=== PATIENT | female | born 1990 | race Caucasian/White ===

== ENCOUNTER 2016-09-04 21:20 | Emergency (ER) | payer SELFPAY ==
[~2016-09-04] VITALS: Ht 172.7 cm; Wt 72.6 kg
[2016-09-04 21:34] VITALS: BP 144/102
--- NOTE | 2016-09-04 21:50 | PHYS DOC ---
Past Medical History Past Medical History: Hepatitis, Other Additional Past Medical Histor: HEPATITIS C, HERPES Past Surgical History: No Surgical History Alcohol Use: None Drug Use: None Adult General Chief Complaint Chief Complaint: DENTAL PROBLEM HPI HPI Patient is a 26 year old female with history of hepatitis C who presents today stating her gums are very painful and they feel like they can follow-up. Patient denies any fever. She states she has a dentist and follows up at [facility]. She is requesting something for pain very urgently in the ED. Review of Systems Review of Systems Constitutional: Denies fever or chills [] Eyes: Denies change in visual acuity, redness, or eye pain [] HENT: gum pain redness and swelling Respiratory: Denies cough or shortness of breath [] Cardiovascular: No additional information not addressed in HPI [] GI: Denies abdominal pain, nausea, vomiting, bloody stools or diarrhea [] : Denies dysuria or hematuria [] Musculoskeletal: Denies back pain or joint pain [] Integument: Denies rash or skin lesions [] Neurologic: Denies headache, focal weakness or sensory changes [] Endocrine: Denies polyuria or polydipsia [] Current Medications Current Medications Current Medications Medications (Trade) Dose Ordered Sig/[place] Start Time Stop Time Status Last Admin Dose Admin Lidocaine HCl (Viscous Lidocaine) 15 ml 1X ONCE 09/04/16 22:00 09/04/16 22:01 Allergies Allergies Allergies Coded Allergies Type Severity Reaction Last Updated Verified acetaminophen Allergy Unknown 03/27/15 Yes latex Allergy Unknown 06/14/15 No Physical Exam Physical Exam Constitutional: Well developed, well nourished, no acute distress, non-toxic appearance. [] HENT: Normocephalic, atraumatic, bilateral external ears normal, oropharynx moist, no oral exudates, nose normal. [] Lower gums especially the front teeth appear to have redness and swelling diffusely consistent with gingivitis. Poor dental hygiene with dental carriers Eyes: PERRLA, EOMI, conjunctiva normal, no discharge. [] Neck: Normal range of motion, no tenderness, supple, no stridor. [] Cardiovascular:Heart rate regular rhythm, no murmur [] Lungs & Thorax: Bilateral breath sounds clear to auscultation [] Abdomen: Bowel sounds normal, soft, no tenderness, no masses, no pulsatile masses. [] Skin: Warm, dry, no erythema, no rash. [] Back: No tenderness, no CVA tenderness. [] Extremities: No tenderness, no cyanosis, no clubbing, ROM intact, no edema. [] Neurologic: Alert and oriented X 3, normal motor function, normal sensory function, no focal deficits noted. [] Psychologic: Affect normal, judgement normal, mood normal. [] Current Patient Data Vital Signs Vital Signs Date Time Temp Pulse Resp B/P Pulse Ox O2 Delivery O2 Flow Rate FiO2 09/04/16 21:34 98.2 98 16 99 Room Air 98.2 EKG EKG [] Radiology/Procedures Radiology/Procedures [] Course & Med Decision Making Course & Med Decision Making Pertinent Labs and Imaging studies reviewed. (See chart for details) Patient has gingivitis and dental carriers. She was discharged with amoxicillin , chlorhexidine and lidocaine viscous. She stated she has a dentist, i recommended she follows up as soon as as can. Dragon Disclaimer Dragon Disclaimer This electronic medical record was generated, in whole or in part, using a voice recognition dictation system. Departure Departure Impression: Primary Impression: Gingivitis, acute Additional Impression: Dental caries Disposition: HOME, SELF-CARE Condition: STABLE Referrals: NO PCP (PCP) Follow-up with your dentist in one week Patient Instructions: Gingivitis, [id number] Additional Instructions: You were seen for gingivitis which is inflammation of the GUMS. We put you on several medicines. Use them as directed. Follow-up with your own dentist in the next 7 days, Scripts Amoxicillin 875 Mg Tablet1 Tab PO BID #20 TAB Prov:TIANA MCPHERSON APRN 09/04/16 Lidocaine Hcl (Lidocaine Hcl Viscous)20 Mg/1 Ml [id number] Ml PO QID #100 ML Swish and spit for gum pain Prov:TIANA MCPHERSON APRN 09/04/16 Chlorhexidine Gluconate (Peridex)15 Ml [id number] Ml PO BID #946 ML Prov:TIANA MCPHERSON APRN 09/04/16 Problem Qualifiers TIANA MCPHERSON APRN Sep 04, 2016 21:50
[2016-09-04] MEDS ORDERED: LIDO20SO PO (21:55)
[2016-09-04] MEDS ORDERED: CHLO15MO2 PO (21:55)
[2016-09-04] MEDS ORDERED: AMOX875T PO (21:58)
[2016-09-04] MEDS ORDERED: LIDOCAINE 2% VISCOUS 15 ML SOLUTION. SWSW ONE (22:00)
[2016-09-04] MEDS ORDERED: AMOX400S2 PO (22:14)
[2016-09-04] MEDS ORDERED: OXYCODONE IR 5 MG TABLET. PO ONE (22:15)
== END 2016-09-04 22:11 | disposition home or self-care (01) ==
LOC: ER 21:20
DX: K05.00 Acute gingivitis, plaque induced (principal); K02.9 Dental caries, unspecified; Z86.19 Personal history of other infectious and parasitic diseases; Z91.040 Latex allergy status; Z88.8 Allergy status to other drugs, medicaments and biological substances
CPT/HCPCS: 99283

== ENCOUNTER 2020-07-11 15:09 | Emergency (ER) | payer OTHER ==
[~2020-07-11] VITALS: Ht 172.7 cm; Wt 68.1 kg
[~2020-07-11 15:09] MED LIST: AMOX400S2 PO; AMOX875T PO; CHLO15MO2 PO; LIDO20SO PO
--- NOTE | 2020-07-11 17:28 | PHYS DOC ---
Past Medical History Past Medical History: Hepatitis, Other Additional Past Medical Histor: HEPATITIS C, HERPES Past Surgical History: Smoking Status: Current Every Day Smoker Alcohol Use: None Drug Use: None Social History Narrative: PT HAS WHAT LOOKS SIMILAR TO TIA Rangel ARM General Adult EDM: Chief Complaint: VAGINAL BLEEDING HPI: HPI: Patient is a 30 year old female who presents with had a 11 days ago. She states after she had the baby she found that she was Covid positive. She states that she is here today because she has been cramping and having vaginal bleeding that is intermittent but it will get heavy and then light. She states that she went through 3 pads today. She states she awoke last night and had to take a shower because she had blood so much. Patient rates her pain 5 out of 10 at this time. She did not take any medication for pain. Patient had her baby at . When I asked who her family coach or her OB was she stated she does not know when she was high risk at and saw several different doctors. When asked when her next appointment as she states she does not know because she does not have the paperwork with her. Patient has a history of hemorrhage, herpes, , hep C and she is a smoker. Review of Systems: Review of Systems: Constitutional: Denies fever or chills. [] Eyes: Denies change in visual acuity. [] HENT: Denies nasal congestion or sore throat. [] Respiratory: Denies cough or shortness of breath. [] Cardiovascular: Denies chest pain or edema. [] GI: + abdominal pain, denies nausea, vomiting, bloody stools or diarrhea. [] : Denies dysuria. + Vaginal bleeding [] Musculoskeletal: Denies back pain or joint pain. [] Integument: Denies rash. [] Neurologic: Denies headache, focal weakness or sensory changes. [] Endocrine: Denies polyuria or polydipsia. [] Lymphatic: Denies swollen glands. [] Psychiatric: Denies depression or anxiety. [] Heart Score: Risk Factors: Risk Factors: DM, Current or recent (<one month) smoker, HTN, HLP, family history of CAD, obesity. Risk Scores: Score 0 - 3: 2.5% MACE over next 6 weeks - Discharge Home Score 4 - 6: 20.3% MACE over next 6 weeks - Admit for Clinical Observation Score 7 - 10: 72.7% MACE over next 6 weeks - Early Invasive Strategies Allergies: Allergies: Allergies Coded Allergies Type Severity Reaction Last Updated Verified acetaminophen Allergy Unknown 03/27/15 Yes latex Allergy Unknown 06/14/15 No Physical Exam: PE: Constitutional: Well developed, well nourished, no acute distress, non-toxic a ppearance. [] HENT: Normocephalic, atraumatic, bilateral external ears normal, oropharynx moist, no oral exudates, nose normal. [] Eyes: PERRLA, EOMI, conjunctiva normal, no discharge. [] Neck: Normal range of motion, no tenderness, supple, no stridor. [] Cardiovascular:Heart rate regular rhythm, no murmur [] Lungs & Thorax: Bilateral breath sounds clear to auscultation [] Abdomen: Bowel sounds normal, soft, no tenderness, no masses, no pulsatile masses. [] Skin: Warm, dry, no erythema, no rash. [] Back: No tenderness, no CVA tenderness. [] Extremities: No tenderness, no cyanosis, no clubbing, ROM intact, no edema. [] Neurologic: Alert and oriented X 3, normal motor function, normal sensory function, no focal deficits noted. [] Psychologic: Affect normal, judgement normal, mood normal. Normal physical exam [] Current Patient Data: Vital Signs: Vital Signs Date Time Temp Pulse Resp B/P (MAP) Pulse Ox O2 Delivery O2 Flow Rate FiO2 07/11/20 17:02 98.0 95 20 130/89 (103) 98 Room Air 98.0 EKG: EKG: [] Radiology/Procedures: Radiology/Procedures: [] Impression: [facility] [address] [place] [address] IMAGING REPORT Signed PATIENT: MARLEY JASON ACCOUNT: [id number] : 1990 LOCATION: ER AGE: 30 SEX: F EXAM STATUS: REG ER ORD. PHYSICIAN: SABA PHAN APRN REASON: POST , ABD PAIN, INCREASE BLEEDING PROCEDURE: PELVIS W/TV EXAM: Pelvic sonogram. HISTORY: bleeding. TECHNIQUE: Transvaginal sonographic imaging of the pelvis was performed. COMPARISON: None. FINDINGS: The uterus measures 11.5 x 9.3 x 7.4 cm. The endometrial stripe it is hypoechoic and measures 13 mm in thickness. There are echogenic foci within the endometrial cavity. The ovaries are normal in size and demonstrate normal blood flow. There are small bilateral ovarian follicles. There are nabothian cysts within the cervix. There is a 1.7 cm hypoechoic lesion within the cul-de-sac, likely due to a small loculated fluid collection. IMPRESSION: 1. Heterogeneous hypoechoic and endometrial stripe measuring 13 mm and containing echogenic foci. No convincing retained products of conception are seen. The possibility of endometritis is not completely excluded. 2. Small suspected fluid collection within the cul-de-sac. Short-term follow-up can be performed to confirm stability or resolution. Electronically signed by: Gauri Delgadillo MD (07/11/2020 6:18 PM) [facility] DICTATED and SIGNED BY: GAURI DELGADILLO MD DATE: 07/11/20 [id number] 0 Course & Med Decision Making: Course & Med Decision Making Pertinent Labs and Imaging studies reviewed. (See chart for details) See HPI. Speaks in full complete sentences. Ambulatory to steady gait. Skin pink warm and dry. Vital signs within normal limits. Patient denies shortness of breath, chest pain, urinary symptoms, dizziness, headache, fever, vision changes, numbness or tingling. Upon examination there is no vaginal bleeding. Pelvic Exam: Robotics Technologist present Abdomen: Nontender External Genitalia: Normal Skin Speculum: Normal vaginal mucosa, Normal cervical discharge Bimanual: No adnexal masses or tenderness, No CMT [] Dragon Disclaimer: Dragon Disclaimer: This electronic medical record was generated, in whole or in part, using a voice recognition dictation system. Departure Departure Impression: Primary Impression: Vaginal bleeding Disposition: 01 DC HOME SELF CARE/HOMELESS Condition: STABLE Referrals: NO PCP (PCP) Patient Instructions: Care After Delivery Additional Instructions: Follow-up with OB doctor soon as possible. Drink plenty of fluids. If you begin bleeding more than 1 pad an hour return to the emergency room. I would go to since you had the baby at . SABA PHAN DRUM PRINTER Jul 11, 2020 17:28
[2020-07-11 17:42] LABS: BASO # 0.1 x10^3/uL (0.0-0.2); BASO % 1 % (0-3); EOS # 0.3 x10^3/uL (0.0-0.7); EOS % 4 % (0-3); HEMATOCRIT 34.7 % (36.0-47.0); HEMOGLOBIN 11.7 g/dL (12.0-15.5); LYMPH # 1.9 x10^3/uL (1.0-4.8); LYMPH % 21 % (24-48); MEAN CORPUSCULAR HEMOGLOBIN 30 pg (25-35); MEAN CORPUSCULAR HGB CONC 34 g/dL (31-37); MEAN CORPUSCULAR VOLUME 88 fL (79-100); MONO # 0.6 x10^3/uL (0.0-1.1); MONO % 6 % (0-9); NEUT # 6.1 x10^3/uL (1.8-7.7); NEUT % 68 % (31-73); PLATELET COUNT 402 x10^3/uL (140-400); RED BLOOD COUNT 3.96 x10^6/uL (3.50-5.40); RED CELL DISTRIBUTION WIDTH 15.4 % (11.5-14.5)
[2020-07-11 17:46] LABS: BILIRUBIN,URINE NEGATIVE (NEG); CLARITY,URINE CLOUDY; COLOR,URINE YELLOW; NITRITE,URINE NEGATIVE (NEG); PROTEIN,URINE NEGATIVE (NEG-TRACE); UROBILINOGEN,URINE 0.2 mg/dL (0.2 mg/dL)
[2020-07-11 17:52] LABS: BARBITURATES NEG (NEG); BENZODIAZEPINES NEG (NEG); CANNABINOIDS NEG (NEG); COCAINE NEG (NEG); METHADONE NEG (NEG); OPIATES NEG (NEG); PHENCYCLIDINE NEG (NEG)
[2020-07-11 17:53] LABS: PROTHROMBIN TIME PATIENT 12.7 SEC (11.7-14.0)
[2020-07-11 18:02] LABS: AMPHETAMINE/METHAMPHETAMINE NEG (NEG)
[2020-07-11 18:06] LABS: CALCIUM 9.1 mg/dL (8.5-10.1); CREATININE 0.7 mg/dL (0.6-1.0); GFR 97.6; POTASSIUM 3.7 mmol/L (3.5-5.1)
[2020-07-11 18:06] LABS: BACTERIA,URINE FEW /HPF (0-FEW)
[2020-07-11 18:07] VITALS: BP 119/61
[2020-07-11 18:10] LABS: ALBUMIN 3.3 g/dL (3.4-5.0); ALBUMIN/GLOBULIN RATIO 0.9 (1.0-1.7); TOTAL BILIRUBIN 0.4 mg/dL (0.2-1.0)
--- NOTE | 2020-07-11 18:21 | RAD ---
EXAM: Pelvic sonogram. HISTORY: bleeding. TECHNIQUE: Transvaginal sonographic imaging of the pelvis was performed. COMPARISON: None. FINDINGS: The uterus measures 11.5 x 9.3 x 7.4 cm. The endometrial stripe it is hypoechoic and measures 13 mm in thickness. There are echogenic foci within the endometrial cavity. The ovaries are normal in size and demonstrate normal blood flow. There are small bilateral ovarian follicles. There are nabothian cysts within the cervix. There is a 1.7 cm hypoechoic lesion within the cul-de-sac, likely due to a small loculated fluid collection. IMPRESSION: 1. Heterogeneous hypoechoic and endometrial stripe measuring 13 mm and containing echogenic foci. No convincing retained products of conception are seen. The possibility of endometritis is not completely excluded. 2. Small suspected fluid collection within the cul-de-sac. Short-term follow-up can be performed to confirm stability or resolution. Electronically signed by: Gauri Hahn MD (07/11/2020 6:18 PM) [facility]
== END 2020-07-11 19:05 | disposition home or self-care (01) ==
LOC: ER 15:09
DX: N93.9 Abnormal uterine and vaginal bleeding, unspecified (principal); K75.9 Inflammatory liver disease, unspecified; F17.200 Nicotine dependence, unspecified, uncomplicated; Z98.890 Other specified postprocedural states; Z91.040 Latex allergy status; Z88.8 Allergy status to other drugs, medicaments and biological substances
CPT/HCPCS: 36415; 76830; 76856; 80053; 80307; 81001; 85025; 85610; 87086; 99284

== ENCOUNTER 2020-10-27 20:46 | Emergency (ER) | payer OTHER ==
[~2020-10-27] VITALS: Ht 172.7 cm; Wt 72.7 kg
[2020-10-27] MEDS ORDERED: ACETAMINOPHEN 325 MG TABLET. PO ONE (21:30)
[2020-10-27 21:57] LABS: BASO % 1 % (0-3); EOS # 0.3 x10^3/uL (0.0-0.7); EOS % 4 % (0-3); HEMATOCRIT 35.4 % (36.0-47.0); HEMOGLOBIN 11.5 g/dL (12.0-15.5); LYMPH # 1.4 x10^3/uL (1.0-4.8); LYMPH % 22 % (24-48); MEAN CORPUSCULAR HEMOGLOBIN 28 pg (25-35); MEAN CORPUSCULAR HGB CONC 33 g/dL (31-37); MEAN CORPUSCULAR VOLUME 85 fL (79-100); MONO # 0.4 x10^3/uL (0.0-1.1); MONO % 7 % (0-9); NEUT # 4.2 x10^3/uL (1.8-7.7); NEUT % 67 % (31-73); PLATELET COUNT 292 x10^3/uL (140-400); RED BLOOD COUNT 4.18 x10^6/uL (3.50-5.40); RED CELL DISTRIBUTION WIDTH 16.1 % (11.5-14.5); WHITE BLOOD COUNT 6.3 x10^3/uL (4.0-11.0)
[2020-10-27 22:06] LABS: CALCIUM 8.5 mg/dL (8.5-10.1); CREATININE 0.8 mg/dL (0.6-1.0); GFR 83.7; POTASSIUM 3.8 mmol/L (3.5-5.1)
--- NOTE | 2020-10-27 23:09 | RAD ---
Pelvic ultrasound, transabdominal and transvaginal: Reason for examination: Pelvic pain. Transabdominal and transvaginal ultrasound examination of the pelvis was performed. Uterus measures 8.2 x 6.4 x 5.2 cm in greatest dimension. Endometrium is 2.6 mm. IUD is present but a ppears malpositioned. The right ovary measures 4.8 x 2.8 x 3.3 cm in greatest dimension and shows good vascular flow. There is a 4.1 x 2.5 cm cyst present. The left ovary measures 2.8 x 1.6 x 1.5 cm in greatest dimension and shows good vascular flow. There is a septated 1.4 x 0.9 cm cyst. There is no free fluid present. IMPRESSION: Malpositioned IUD within the endometrial cavity. 4.1 x 2.5 cm cyst in the right ovary. 1.4 x 0.9 cm septated cyst in the left ovary. Electronically signed by: Yumiko Horta MD (10/27/2020 11:06 PM) [facility]
--- NOTE | 2020-10-28 00:24 | PHYS DOC ---
Past Medical History Past Medical History: Hepatitis, Other Additional Past Medical Histor: HEPATITIS C, HERPES Past Surgical History: Smoking Status: Current Every Day Smoker Alcohol Use: None Drug Use: None Social History Narrative: HX HEROIN USE, LAST USED 5 YEARS AGO General Adult EDM: Chief Complaint: VAGINAL BLEEDING HPI: HPI: 30-year-old female presents the ED with complaints of IUD string "coming out," after patient removed her tampon. Patient states she gave in June at and had her IUD placed there. Complains of new pelvic cramping pain after removing the tampon "I know its' not in the right place." Is currently on her menses and states she has had irregular menses since giving , delivery was uncomplicated. Denies any sexual activity-states she came here right after she noticed the string. Review of Systems: Review of Systems: Constitutional: Denies fever or chills. [] Eyes: Denies change in visual acuity. [] HENT: Denies nasal congestion or sore throat. [] Respiratory: Denies cough or shortness of breath. [] Cardiovascular: Denies chest pain or edema. [] GI: Denies abdominal pain, nausea, vomiting, bloody stools or diarrhea. [] : Denies dysuria. [] Musculoskeletal: Denies back pain or joint pain. [] Integument: Denies rash. [] Neurologic: Denies headache, focal weakness or sensory changes. [] Endocrine: Denies polyuria or polydipsia. [] Lymphatic: Denies swollen glands. [] Psychiatric: Denies depression or anxiety. [] Heart Score: C/O Chest Pain: No Risk Factors: Risk Factors: DM, Current or recent (<one month) smoker, HTN, HLP, family history of CAD, obesity. Risk Scores: Score 0 - 3: 2.5% MACE over next 6 weeks - Discharge Home Score 4 - 6: 20.3% MACE over next 6 weeks - Admit for Clinical Observation Score 7 - 10: 72.7% MACE over next 6 weeks - Early Invasive Strategies Current Medications: Current Medications Medications (Trade) Dose Ordered Sig/[place] Start Time Stop Time Status Last Admin Dose Admin Acetaminophen (Tylenol) 650 mg 1X ONCE 10/27/20 21:30 10/27/20 21:31 DC 10/27/20 21:45 650 MG Allergies: Allergies: Allergies Coded Allergies Type Severity Reaction Last Updated Verified acetaminophen Allergy Unknown 03/27/15 Yes latex Allergy Unknown 06/14/15 No Physical Exam: PE: Constitutional: Well developed, well nourished, no acute distress, non-toxic appearance. HENT: Normocephalic, atraumatic, Eyes: EOMI, conjunctiva normal, no discharge. Neck: Normal range of motion, supple, Cardiovascular: S1/2 present, regular rhythm Lungs & Thorax: Speaking in full sentences, bilateral equal chest rise, no tachypnea or increased work of breathing Abdomen: soft, no tenderness, Skin: Warm, dry, no erythema, no rash. [] Back: No tenderness, no CVA tenderness. [] Extremities: No tenderness, no cyanosis, no lower extremity edema Neurologic: Alert and oriented X 3, normal motor function, normal sensory function, no focal deficits noted. [] Psychologic: Affect normal, judgement normal, mood normal. [] Pelvic: Chaperoned by RN, external genitalia normal, +mild/moderate vaginal bleeding, normal nonmalodorous discharge, cervical os closed/multiparous, no cervical erythema, no CMT or adnexal tenderness, long blue IUD string extending 10 cm past vaginal orifice, string present in cervical os but no visualized/partially visualized IUD, tolerated exam well Current Patient Data: Labs: Laboratory Tests Test 10/27/20 20:59 10/27/20 21:48 POC Urine HCG, Qualitative Hcg negative (Negative) White Blood Count 6.3 x10^3/uL (4.0-11.0) Red Blood Count 4.18 x10^6/uL (3.50-5.40) Hemoglobin 11.5 g/dL (12.0-15.5) L Hematocrit 35.4 % (36.0-47.0) L Mean Corpuscular Volume 85 fL (79-100) Mean Corpuscular Hemoglobin 28 pg (25-35) Mean Corpuscular Hemoglobin Concent 33 g/dL (31-37) Red Cell Distribution Width 16.1 % (11.5-14.5) H Platelet Count 292 x10^3/uL (140-400) Neutrophils (%) (Auto) 67 % (31-73) Lymphocytes (%) (Auto) 22 % (24-48) L Monocytes (%) (Auto) 7 % (0-9) Eosinophils (%) (Auto) 4 % (0-3) H Basophils (%) (Auto) 1 % (0-3) Neutrophils # (Auto) 4.2 x10^3/uL (1.8-7.7) Lymphocytes # (Auto) 1.4 x10^3/uL (1.0-4.8) Monocytes # (Auto) 0.4 x10^3/uL (0.0-1.1) Eosinophils # (Auto) 0.3 x10^3/uL (0.0-0.7) Basophils # (Auto) 0.0 x10^3/uL (0.0-0.2) Sodium Level 139 mmol/L (136-145) Potassium Level 3.8 mmol/L (3.5-5.1) Chloride Level 104 mmol/L (98-107) Carbon Dioxide Level 29 mmol/L (21-32) Anion Gap 6 (6-14) Blood Urea Nitrogen 10 mg/dL (7-20) Creatinine 0.8 mg/dL (0.6-1.0) Estimated GFR (Cockcroft-Gault) 83.7 Glucose Level 115 mg/dL (70-99) H Calcium Level 8.5 mg/dL (8.5-10.1) Laboratory Tests 10/27/20 21:48 Laboratory Tests 10/27/20 21:48 Microbiology 10/27/20 Wet Prep - Final, Complete Vital Signs: Vital Signs Date Time Temp Pulse Resp B/P (MAP) Pulse Ox O2 Delivery O2 Flow Rate FiO2 10/27/20 22:19 86 149/99 (116) 100 Room Air 10/27/20 20:56 98.0 16 98.0 EKG: EKG: [] Radiology/Procedures: Radiology/Procedures: IMAGING REPORT Signed PATIENT: MARLEY JASON ACCOUNT: [id number] : 1990 LOCATION: ER AGE: 30 SEX: F EXAM STATUS: REG ER ORD. PHYSICIAN: JIMMIE TATUM DO REASON: pelvic pain, iud strings out of vaginal orifice, iud malposition? PROCEDURE: PELVIS W/TV Pelvic ultrasound, transabdominal and transvaginal: Reason for examination: Pelvic pain. Transabdominal and transvaginal ultrasound examination of the pelvis was performed. Uterus measures 8.2 x 6.4 x 5.2 cm in greatest dimension. Endometrium is 2.6 mm. IUD is present but appears malpositioned. The right ovary measures 4.8 x 2.8 x 3.3 cm in greatest dimension and shows good vascular flow. There is a 4.1 x 2.5 cm cyst present. The left ovary measures 2.8 x 1.6 x 1.5 cm in greatest dimension and shows good vascular flow. There is a septated 1.4 x 0.9 cm cyst. There is no free fluid present. IMPRESSION: Malpositioned IUD within the endometrial cavity. 4.1 x 2.5 cm cyst in the right ovary. 1.4 x 0.9 cm septated cyst in the left ovary. Electronically signed by: Tray Simon MD (10/27/2020 11:06 PM) [facility] DICTATED and SIGNED BY: TRAY SIMON MD DATE: 10/27/20 [id number] Course & Med Decision Making: Course & Med Decision Making Pertinent Labs and Imaging studies reviewed. (See chart for details) Concern for IUD malposition N/A well-appearing, no extremis pain pt with minimal vaginal bleeding on pelvic exam. Pt afebrile, no leukocytosis, mild normocytic anemia. Unable to visualize any portion of IUD protruding from cervical os. Discussed with BUNG DROPPER Dr. Pavon who recommends urgent/nonemergent outpatient follow-up for D&C and IUD removal. I recommended cutting string shorter so would not snack and possibly taping to inner thigh-no tampon use or sexual activity until this has been surgically repaired. Will discharge home with strict ED return precautions were given for sudden pulling of IUD with vaginal bleeding or worsening pain, fever, or flulike symptoms. Encouraged urgent outpatient follow-up with PMD and BUNG DROPPER. Life-threatening processes were considered but are low suspicion at this time, given history, physical exam and ED workup. Pt was educated on all prescription medications and adverse effects. All patient's questions were answered and pt was stable at time of discharge. Life/limb-threatening differential includes but is not limited to, ectopic , septic , sepsis/infection (endometritis, sti/pid, cystitis, pyelonephritis, Luis's gangrene or necrotizing fasciitis, abscess), ovarian torsion, ruptured hemorrhagic ovarian cyst, endometriosis, ureterolithiasis, thrombophlebitis, hemorrhage/DIC, organ prolapse, abdominal aortic aneurysm, mesenteric ischemia, neoplasm, bowel obstruction or surgical abdomen. I spoken with the patient and her caregivers. I explained the patient's condition, diagnoses and treatment plan based on the information available to me at this time. I have answered the patient and her caregiver's questions and addressed any concerns. The patient and her caregivers have a good understanding of patient's diagnosis, condition and treatment plan as can be expected at this point. Vital signs have been stable. Patient's condition is stable and appropriate for discharge from the emergency department. Patient will pursue further outpatient evaluation with primary care physician or other designated or consulting physician as outlined in the discharge instructions. The patient and/or caregivers are agreeable to this plan of care and follow-up instructions have been explained in detail. The patient and/or caregivers have received these instructions in written form and have expressed an understanding of the discharge instructions. The patient and/or caregivers are aware that any significant change of condition or worsening of symptoms should prompt immediate return to this or the closest emergency department or call to [facility]. Linette Disclaimer: Linette Disclaimer: This electronic medical record was generated, in whole or in part, using a voice recognition dictation system. Departure Departure Impression: Primary Impression: Malpositioned IUD Additional Impressions: Normocytic anemia Bacterial vaginosis Disposition: 01 DC HOME SELF CARE/HOMELESS Condition: STABLE Referrals: NO PCP (PCP) FOLLOW UP WITH FAMILY MEDICINE: Family Medicine Address: [address] [place] [address] [address] [place] [address] Patient Instructions: Anemia, Nonspecific-Brief, Levonorgestrel intrauterine device (IUD) Additional Instructions: FOLLOW UP WITH BUNG DROPPER: Zoila Delatorre MD [address] [place] [address] EMERGENCY DEPARTMENT GENERAL DISCHARGE INSTRUCTIONS Thank you for coming to [facility] Emergency Department (ED) tod ay and trusting us with you care. We trust that you had a positive experience in our Emergency Department. If you wish to speak to the department management, you may call the Director at [phone]. YOUR FOLLOW UP INSTRUCTIONS ARE FOLLOWS: 1. Do you have a private Doctor? If you do not have a private doctor, please ask for a resource list of physicians or clinics that may be able to assist you with follow up care. 2. The Emergency Physicain has interpreted your x-rays. The X-Ray specialist will also review them. If there is a change in the findings, you will be notified in 48 hours when at all possible. 3. A lab test or culture has been done, your results will be reviewed and you will be notified if you need a change in treatment. ADDITIONAL INSTRUCTIONS AND INFORMATION: 1. Your care today has been supervised by a physician who is specially trained in emergency care. Many problems require more than one evaluation for a complete diagnosis and treatment. We recommend that you schedule your follow up appointment as recommended to ensure complete treatment of you illness or injury. If you are unable to obtain follow up care and continue to have a problem, or if your condition worsens, we recommend that you return to the ED. 2. We are not able to safely determine your condition over the phone nor are we able to give sound medical advice over the phone. For these safety reasons, if you call for medical advice we will ask you to come to the ED for further evaluation. 3. If you have any questions regarding these discharge instructions please call the ED at [phone]. SAFETY INFORMATION: In the interest of safety, wellness, and injury prevention; we encourage you to wear your sealbelt, if you smoke; quite smoking, and we encourage family to use a protective helmet for bicycling and other sporting events that present an increased risk for head injury. IF YOUR SYMPTOMS WORSEN OR NEW SYMPTOMS DEVELOP, OR YOU HAVE CONCERNS ABOUT YOUR CONDITION; OR IF YOUR CONDITION WORSENS WHILE YOU ARE WAITING FOR YOUR FOLLOW UP APPOINTM ENT; EITHER CONTACT YOUR PRIMARY CARE DOCTOR, THE PHYSICIAN WHOSE NAME AND NUMBER YOU WERE GIVEN, OR RETURN TO THE ED IMMEDIATELY. Scripts Metronidazole (FLAGYL) 500 Mg Tablet 1 TAB PO BID for 7 Days, #14 TAB Prov: JIMMIE TATUM DO 10/28/20 Tramadol Hcl (TRAMADOL HCL) 50 Mg Tablet 50 MG PO Q6HRS PRN for PAIN for 4 Days, #20 TAB Prov: JIMMIE TATUM DO 10/28/20 [facility] Oct 28, 2020 00:24
[2020-10-28] MEDS ORDERED: TRAM50TA PO (00:36)
[2020-10-28] MEDS ORDERED: METR500T PO (00:40)
[2020-10-28 00:52] VITALS: BP 141/86
== END 2020-10-28 01:10 | disposition home or self-care (01) ==
LOC: ER 20:46
DX: N76.0 Acute vaginitis (principal); D64.9 Anemia, unspecified; K75.9 Inflammatory liver disease, unspecified; F17.200 Nicotine dependence, unspecified, uncomplicated; F11.90 Opioid use, unspecified, uncomplicated; Z98.890 Other specified postprocedural states; Z91.040 Latex allergy status
CPT/HCPCS: 36415; 76830; 76856; 80048; 81025; 85025; 87491; 87591; 99285; Q0111